=== PATIENT | male | born 1945 | race Hispanic/Latino ===

== ENCOUNTER 2019-10-04 06:09 | Day surgery (SDC) | payer MEDICARE ==
[2019-10-04] VITALS (7 sets, daily range): BP systolic 87–109; BP diastolic 40–60; PULSE 75–95; RESP 16–20; TEMP 97.4–97.7
[~2019-10-04] VITALS: Ht 185.4 cm; Wt 97.5 kg
[~2019-10-04 06:09] MED LIST: SODIUM CHLORIDE 0.9% 1000ML 1,000 ML IV ONE
[2019-10-04] MEDS ORDERED: PROPOFOL 10 MG/ML 20ML VIAL IV ONE (08:39)
[2019-10-04] MEDS ORDERED: LIDOCAINE HCL 2% 20ML ONE (08:40)
== END 2019-10-04 09:55 | disposition home or self-care (01) ==
LOC: DAH 06:09
PROVIDERS: ATTEND Internal Medicine Gastroenterology
DX: Z12.11 Encounter for screening for malignant neoplasm of colon (principal); K63.5 Polyp of colon; K57.30 Diverticulosis of large intestine without perforation or abscess without bleeding; J44.9 Chronic obstructive pulmonary disease, unspecified; I10 Essential (primary) hypertension; E78.2 Mixed hyperlipidemia; F41.9 Anxiety disorder, unspecified; F32.9 Major depressive disorder, single episode, unspecified; M19.90 Unspecified osteoarthritis, unspecified site; Z79.899 Other long term (current) drug therapy; Z11.59 Encounter for screening for other viral diseases
CPT/HCPCS: 36415; 45385; 88305; A4215; A4221; A4222; A4223; A4606; A4620; A4657; A4663; J2704; J3490; J7030 ×2; U0003

== ENCOUNTER → 2021-03-23 | Outpatient (CLI) | payer OTHER ==
[~2021-03-23] MED LIST changes: +ATOR10TA69 PO; +ESCI-8 PO; +LIDOCAINE HCL 4% LTA SOL 4 ML VIAL TP ONE; -SODIUM CHLORIDE 0.9% 1000ML 1,000 ML IV ONE; +TELM1TAB32 PO
== END | disposition home or self-care (01) ==
LOC: WHH 10:03
PROVIDERS: ATTEND Family Medicine
DX: L97.512 Non-pressure chronic ulcer of other part of right foot with fat layer exposed (principal); S90.821A Blister (nonthermal), right foot, initial encounter; S90.424A Blister (nonthermal), right lesser toe(s), initial encounter; S50.312A Abrasion of left elbow, initial encounter; R60.0 Localized edema; I89.0 Lymphedema, not elsewhere classified; I10 Essential (primary) hypertension; E78.5 Hyperlipidemia, unspecified; M19.90 Unspecified osteoarthritis, unspecified site; J44.9 Chronic obstructive pulmonary disease, unspecified; F41.9 Anxiety disorder, unspecified; F32.9 Major depressive disorder, single episode, unspecified; E66.9 Obesity, unspecified; Z68.1 Body mass index [BMI] 19.9 or less, adult; Z79.899 Other long term (current) drug therapy; X58.XXXA Exposure to other specified factors, initial encounter; Y93.89 Activity, other specified; Y92.89 Other specified places as the place of occurrence of the external cause; Y99.8 Other external cause status
CPT/HCPCS: 11042; 11045; 29580; A6021; A6197; A6456

== ENCOUNTER → 2021-07-20 | Outpatient (CLI) | payer OTHER | END | disposition home or self-care (01) | LOC: WHH 08:30 | PROVIDERS: ATTEND Family Medicine | DX: L97.512 Non-pressure chronic ulcer of other part of right foot with fat layer exposed (principal); S90.424D Blister (nonthermal), right lesser toe(s), subsequent encounter; S50.312D Abrasion of left elbow, subsequent encounter; I89.0 Lymphedema, not elsewhere classified; R60.0 Localized edema; I10 Essential (primary) hypertension; E78.5 Hyperlipidemia, unspecified; M19.90 Unspecified osteoarthritis, unspecified site; J44.9 Chronic obstructive pulmonary disease, unspecified; F41.9 Anxiety disorder, unspecified; F32.9 Major depressive disorder, single episode, unspecified; E66.9 Obesity, unspecified; Z68.1 Body mass index [BMI] 19.9 or less, adult; Z79.899 Other long term (current) drug therapy; X58.XXXD Exposure to other specified factors, subsequent encounter | CPT/HCPCS: 29580; 87070 ×2; 87077 ×2; 87186 ×2; A6021; A6197; A6456; G0463 ==

== ENCOUNTER → 2022-03-29 | Outpatient (CLI) | payer OTHER ==
[~2022-03-29] MED LIST changes: -LIDOCAINE HCL 4% LTA SOL 4 ML VIAL TP ONE
[2022-03-29 12:44] LABS: BASOPHILS % (AUTO) 0.9 % (0.0-5.0); EOSINOPHILS % (AUTO) 2.2 % (0.0-8.0); HEMATOCRIT 48.4 % (42-54); LYMPHOCYTES % (AUTO) 26.8 % (21.0-51.0); MEAN CORPUSCULAR HEMOGLOBIN 30.7 pg (27.0-33.0); MONOCYTES % (AUTO) 9.4 % (3.0-13.0); NEUTROPHILS % (AUTO) 60.2 % (40.0-77.0); PLATELET COUNT (AUTO) 125 K/uL (130-400); RED BLOOD CELL COUNT(AUTO) 4.89 MIL/uL (4.50-6.20); RED CELL DISTRIBUTION WIDTH 15.4 % (11.0-15.5); WHITE BLOOD COUNT (AUTO) 8.1 K/uL (4.8-10.8)
[2022-03-29 12:50] LABS: CREATININE 0.6 mg/dL (0.5-1.5)
[2022-03-29 12:53] LABS: INR 1.67 (0.85-1.15); PROTHROMBIN TIME 17.7 SEC (9.6-11.6)
[2022-03-29 12:55] LABS: PARTIAL THROMBOPLASTIN TIME 43.7 SEC (26.3-35.5)
== END | disposition home or self-care (01) ==
LOC: LAB 11:50
PROVIDERS: ATTEND Internal Medicine Cardiovascular Disease
DX: I87.1 Compression of vein (principal); I87.8 Other specified disorders of veins
CPT/HCPCS: 36415; 80048; 85025; 85610; 85730

== ENCOUNTER → 2022-05-30 | Outpatient (CLI) | payer OTHER | END | disposition home or self-care (01) | LOC: SHCH 14:59 | PROVIDERS: ATTEND Internal Medicine Cardiovascular Disease | DX: I87.2 Venous insufficiency (chronic) (peripheral) (principal); Z98.890 Other specified postprocedural states | CPT/HCPCS: 93971 ==

== ENCOUNTER → 2022-06-06 | Outpatient (CLI) | payer OTHER | END | disposition home or self-care (01) | LOC: SHCH 11:09 | PROVIDERS: ATTEND Internal Medicine Cardiovascular Disease | DX: I87.2 Venous insufficiency (chronic) (peripheral) (principal); Z98.890 Other specified postprocedural states | CPT/HCPCS: 93971 ==

== ENCOUNTER 2024-06-05 19:19 | Inpatient (IN) | payer OTHER ==
[~2024-06-05] VITALS: Ht 185.4 cm; Wt 87.2 kg
[2024-06-05] MEDS ORDERED: LACTULOSE 20 GM/30 ML UDCUP PO PRN (21:00)
[2024-06-05] MEDS ORDERED: DiphenhydrAMINE HCL 25 MG CAPSULE PO PRN (21:00)
[2024-06-05] MEDS ORDERED: ZOLPidem TARTrate 5 MG TAB PO PRN (21:00)
[2024-06-05] MEDS ORDERED: ALBUTEROL 0.083% 2.5 MG/3 ML INH IH PRN (21:00)
[2024-06-05] MEDS ORDERED: cloNIDine HCL 0.1 MG TABLET PO PRN (21:00)
[2024-06-05] MEDS ORDERED: VANCOMYCIN PROTOCOL PER PHARMACY IV SCH (21:30)
[2024-06-06] VITALS (15 sets, daily range): BP systolic 131–157; BP diastolic 66–99; PULSE 49–82; RESP 17–20; TEMP 97.6–98.6; O2SAT 96–99
[2024-06-06] MEDS: IpraTROPium/alBUTERol SULFATE 3 ML SOLUTION IH SCH
[2024-06-06] MEDS: VANCOMYCIN KIT 1 GM/250 ML IV.KIT IV SCH (00:33)
[2024-06-06] MEDS: FAMOTIDINE 20MG TAB PO SCH (00:33)
--- NOTE | 2024-06-06 00:34 | NUR ---
ASSUMED CARE AT THIS TIME.
[2024-06-06 00:53] LABS: BASOPHILS # (AUTO) 0.04 K/uL (0.00-0.20); BASOPHILS % (AUTO) 0.8 % (0.0-5.0); HEMATOCRIT 44.4 % (42-54); IMMATURE GRANULOCYTE ABSOLUTE 0.02 K/uL (0-1); LYMPHOCYTES # (AUTO) 0.6 K/uL (1.0-4.8); LYMPHOCYTES % (AUTO) 11.8 % (21.0-51.0); MEAN CORPUSCULAR HEMOGLOBIN 28.5 pg (27.0-33.0); MEAN CORPUSCULAR HGB CONC 31.3 g/dL (32.0-36.0); MONOCYTES # (AUTO) 0.3 K/uL (0.1-1.0); MONOCYTES % (AUTO) 6.3 % (3.0-13.0); NEUTROPHILS # (AUTO) 3.9 K/uL (1.8-7.7); NEUTROPHILS % (AUTO) 78.7 % (40.0-77.0); PLATELET COUNT (AUTO) 79 K/uL (130-400); RED BLOOD CELL COUNT(AUTO) 4.88 MIL/uL (4.50-6.20); RED CELL DISTRIBUTION WIDTH 15.6 % (11.0-15.5); WHITE BLOOD COUNT (AUTO) 4.9 K/uL (4.8-10.8)
[2024-06-06 01:00] LABS: CREATININE 0.5 mg/dL (0.5-1.3); POTASSIUM 4.6 mmol/L (3.5-5.1)
[2024-06-06 01:04] LABS: ALBUMIN 2.9 g/dL (3.5-5.0); BILIRUBIN,DIRECT 0.1 mg/dL (0.0-0.3)
--- NOTE | 2024-06-06 02:03 | NUR ---
REPORT GIVEN TO NURSE OZ Yin
[2024-06-06] MEDS: MEROPENEM 1GM 1 GM VIAL IV SCH (03:59)
[2024-06-06 05:34] LABS: BASOPHILS # (AUTO) 0.03 K/uL (0.00-0.20); BASOPHILS % (AUTO) 0.9 % (0.0-5.0); EOSINOPHILS % (AUTO) 2.8 % (0.0-8.0); HEMATOCRIT 32.3 % (42-54); IMMATURE GRANULOCYTE ABSOLUTE 0.02 K/uL (0-1); LYMPHOCYTES # (AUTO) 0.4 K/uL (1.0-4.8); LYMPHOCYTES % (AUTO) 10.5 % (21.0-51.0); MEAN CORPUSCULAR HEMOGLOBIN 28.3 pg (27.0-33.0); MEAN CORPUSCULAR VOLUME 91.5 fL (79-99); MONOCYTES # (AUTO) 0.2 K/uL (0.1-1.0); MONOCYTES % (AUTO) 6.3 % (3.0-13.0); NEUTROPHILS # (AUTO) 2.8 K/uL (1.8-7.7); NEUTROPHILS % (AUTO) 78.9 % (40.0-77.0); PLATELET COUNT (AUTO) 51 K/uL (130-400); RED BLOOD CELL COUNT(AUTO) 3.53 MIL/uL (4.50-6.20); RED CELL DISTRIBUTION WIDTH 15.5 % (11.0-15.5); WHITE BLOOD COUNT (AUTO) 3.5 K/uL (4.8-10.8)
[2024-06-06 05:46] LABS: ALBUMIN 2.2 g/dL (3.5-5.0); BILIRUBIN,DIRECT 0.2 mg/dL (0.0-0.3); BILIRUBIN,TOTAL 0.6 mg/dL (0.2-1.0); CREATININE 0.3 mg/dL (0.5-1.3); TOTAL PROTEIN, SERUM 5.7 g/dL (6.0-8.3)
[2024-06-06 05:50] LABS: POTASSIUM 2.7 mmol/L (3.5-5.1)
[2024-06-06] MEDS ORDERED: PoTASSium chloRIDE 20MEQ/100ML 100 ML IV PRN (07:30)
[2024-06-06] MEDS: VANCOMYCIN 1.25 GM/250 ML BAG 250 ML IV SCH (08:52)
[2024-06-06] MEDS: PoTASSium chl 10% ELIXIR 20MEQ 20 MEQ/15 ML UDCUP PO PRN (12:13)
[2024-06-06 14:27] LABS: INR 1.39 (0.85-1.15); PROTHROMBIN TIME 15.1 SEC (9.6-11.6)
[2024-06-06 14:29] LABS: PARTIAL THROMBOPLASTIN TIME 41.4 SEC (26.3-35.5)
[2024-06-06] MEDS ORDERED: LINE600T14 PO (14:38)
[2024-06-06] MEDS ORDERED: amox-clav (14:41)
[2024-06-06] MEDS: ceFEPime HCL 1 GM VIAL IVPB SCH (14:51)
--- NOTE | 2024-06-06 15:04 | NUR ---
[facility] Consult: Patient assessed by wound healing team. See wound assessment. Assessment and recommendations provided to primary nurse. Education provided. Wound care done. Addendum: 06/07/24 at 0956 by JAME BOATENG RN RN/ Amended: Links added.
--- NOTE | 2024-06-06 15:49 | HMCIMG ---
CHEST 1VW HISTORY: PICC line placement COMPARISON: None FINDINGS: A frontal projection of the chest was obtained. There are bilateral pulmonary infiltrates suggestive of pulmonary vascular congestion with possible superimposed pneumonitis. The heart is borderline enlarged. PICC line is seen entering from the right with distal tip in plane of the superior vena cava. Aortic calcifications are seen. IMPRESSION: 1. Bilateral pulmonary infiltrates are seen suggestive of pulmonary vascular congestion with possible superimposed pneumonitis.
--- NOTE | 2024-06-06 17:46 | NUR ---
DCP Pt in bed, awake, Leticia Duarte [phone] at bedside. Verbalized pt is hard of hearing. Pt has an electric wheelchair and [facility] for wound care. Mrs. Duarte anticipates discharge plan is for long-term facility, release of information is signed and in the chart. Addendum: 06/06/24 at 1751 by MARSHALL LAURENT RN CM Amended: Links added.
--- NOTE | 2024-06-06 18:04 | PN ---
SUBJECTIVE: The patient was examined at bedside, dictation for a visit of 06/06. The patient denies any fever, chills, seizures, loss of consciousness. No chest pain, palpitation. No cough, wheeze or rhonchi. Continue with wound care for lower extremities. He was started also on meropenem and vancomycin yesterday. PHYSICAL EXAMINATION: GENERAL: Currently, he is awake, alert, oriented in person, time and place. VITAL SIGNS: Blood pressure 155/99, pulse 68, respiratory rate 17. HEENT: Normocephalic, atraumatic. LUNGS: Clear to auscultation. HEART: S1, S2 are distant. ABDOMEN: Soft, nontender. EXTREMITIES: Covered with surgical gauzes. There is an erythroderma and warmness from the upper third of leg down to fifth. LABORATORY DATA: WBC count 3.5, hemoglobin 10, platelets 51,000. Sodium 145, potassium 2.7, BUN 13, creatinine 0.3, albumin 2.2. ASSESSMENT AND PLAN: Bilateral lower extremity cellulitis with associated non-pressure ulcers. Positive cultures for Acinetobacter SP, pseudomonal aeruginosa, E. coli, morganella. The patient will continue with current antibiotics. He will have PICC line in place, have consultation with ID to continue antibiotics. We will plan to discharge to either a SNF or to outpatient infusion unit. Continue treatment of other comorbidities, hypertension, muscular dystrophy, dyslipidemia. Follow up in a.m. with results. Plan to discharge when arrangements are completed. DOS: 06/06/2024 TID: [id number] RECEIPT: [id number] [facility]
--- NOTE | 2024-06-06 18:33 | NUR ---
PICC LINE PLACED WAITING FOR DR. BEULAH COBIAN TO USE
[2024-06-06] MEDS: SODIUM HYPOCHLORITE 0.25% [HALF STRENGTH] 473 ML TOPICAL SOLN TP SCH (20:27)
[2024-06-06] MEDS: acetaMINOPHEN 325 MG TAB PO PRN (21:32)
[2024-06-07] VITALS (11 sets, daily range): BP systolic 138–157; BP diastolic 66–87; PULSE 64–98; RESP 17–22; TEMP 97.8–98.9; O2SAT 91–100
--- NOTE | 2024-06-07 04:51 | CONS ---
INFECTIOUS DISEASE CONSULTATION NOTE DATE OF SERVICE: 06/06/2024 REQUESTING PHYSICIAN: Stefano Arora MD REASON FOR CONSULTATION: Bilateral leg ulceration antibiotic management. HISTORY OF PRESENT ILLNESS: An 78-year-old male with history of hypertension, depression, dyslipidemia, and chronic lymphedema who was admitted with increasing ulcer and redness of both legs. The patient found with extensive infection, was subsequently admitted. The patient . The patient was in my clinic few weeks ago, was offered IV antibiotics. The patient and the refused. No fever or chills. No nausea or vomiting. No diarrhea. The patient is wheelchair bound. PAST MEDICAL HISTORY: * Hypertension. * Depression. * Dyslipidemia. * Lymphedema. * Muscular dystrophy. * Wheelchair-bound status. PAST SURGICAL HISTORY: * Bilateral pneumonectomy. * Multiple lower extremity wound debridement. ALLERGIES: No known drug allergy. CURRENT MEDICATIONS: Include: * Vancomycin. * Meropenem. * Lactulose. * Pepcid. * Tylenol. * . * Lovenox. SOCIAL HISTORY: The patient lives with his . No alcohol or drug use. FAMILY HISTORY: Noncontributory. REVIEW OF SYSTEMS: Greater than 10 systems were reviewed, negatives as documented above. PHYSICAL EXAMINATION: GENERAL: Elderly male, awake. VITAL SIGNS: Temperature today 98.1, pulse 60, respirations 20, blood pressure 155/99. EYES: No icterus. Pupils equal and reactive. HENT: No oral thrush seen. Moist oral mucosa. NECK: Supple, no JVD or thyromegaly. LUNGS: Good air entry. No rales, no rhonchi. CARDIOVASCULAR: S1, S2 regular. No murmur heard. ABDOMEN: Full, soft. Bowel sound is present. CENTRAL NERVOUS SYSTEM: The patient is awake, alert, bedbound. Paraplegia in lower extremities. SKIN: No rashes, no itchiness. LYMPHATIC: There is bilateral inguinal lymphadenopathy. BACK: No deformity, no pressure ulcer. EXTREMITIES: Extensive ulcer, lymphedema involving both the legs. There is extensive fungal infection of both feet. LABORATORY DATA: Sodium 142, potassium 3.7, BUN 13, creatinine 0.3. WBC 3.5, hemoglobin 10.0, platelets 51,000. ASSESSMENT: An 78-year-old male admitted with: * Bilateral leg ulcers, complained of bilateral lower extremity cellulitis. * Bilateral leg ulcer. * Chronic lymphedema. * Onychomycosis * Thrombocytopenia. * Leukopenia. * . PLAN: * Continue vancomycin. * Start the patient on meropenem. * Start the patient on fluconazole. * Start the patient on cefepime. * Continue pain management. * Continue DVT prophylaxis. * Monitor electrolytes. * Continue lactulose. Thank you for allowing me to participate in the care of this patient. TID: [id number] RECEIPT: [id number]
[2024-06-07 08:18] LABS: ALBUMIN 2.5 g/dL (3.5-5.0); BILIRUBIN,TOTAL 0.9 mg/dL (0.2-1.0); CREATININE 0.4 mg/dL (0.5-1.3); POTASSIUM 4.2 mmol/L (3.5-5.1)
--- NOTE | 2024-06-07 08:22 | NUR ---
MEDICATIONS HAVE NOT BEEN RECONSILED YET DUE TO PATIENT BEING A POOR HISTORIAN. FAMILY MEMBERS ENCOURAGED TO BRING HOME MEDICATIONS.
--- NOTE | 2024-06-07 08:36 | NUR ---
CALLED PHARMACY TO NOTIFY THEM I DO HAVE HAVE A WORKING WOW AND ARE NOT ABLE TO SCAN PATIENT MEDICATIONS. SPOKE WITH ABHINAV. SHE STATED SHE WILL PRINT PAPER E-MAR. NOTIFY MR. LUCAS, CLINICAL DAY HABILITATION SPECIALIST FOR 3RD FLOOR.
[2024-06-07] MEDS: fluCONazole 100 MG TAB PO SCH (09:06)
[2024-06-07] MEDS ORDERED: METO-408 PO (11:10)
[2024-06-07] MEDS ORDERED: RIVA20TA PO (11:10)
--- NOTE | 2024-06-07 19:00 | NUR ---
PERFORMED WOUND CARE TO LOWER EXTREMITIES DIRECTED BY PHYSICIAN. PATIENT TOLERATED WOUND CARE WELL. NO COMPLAINTS OF PAIN.
--- NOTE | 2024-06-07 21:49 | PN ---
INFECTIOUS DISEASE FOLLOWUP NOTE DATE OF SERVICE: 06/07/2024 SUBJECTIVE: The patient is seen and examined at bedside today. The patient has no fever, no chills. No vomiting. No abdominal pain. Tolerating antibiotic. No slurred speech or limb weakness. No depression or suicidal ideation. No bleeding tendency. PHYSICAL EXAMINATION: VITAL SIGNS: Temperature today 98.4. EYES: No icterus. Pupils equal and reactive. HENT: No oral thrush seen. Moist oral mucosa. NECK: Supple. No JVD or thyromegaly. LUNGS: Good air entry. No rales. No rhonchi. CARDIOVASCULAR: S1, S2, regular. No murmur heard. ABDOMEN: Full, soft, nontender. Bowel sounds are present. CENTRAL NERVOUS SYSTEM: Awake, alert, oriented x 3. No focal deficit. Bedbound debility. SKIN: No rashes, no itchiness. LYMPHATIC: There is bilateral inguinal lymphadenopathy. BACK: No deformity, no pressure ulcer. EXTREMITIES: Extensive ulcer and lymphedema of both lower legs. ASSESSMENT: * An 78-year-old male with multiple problems and leg ulcer. * Chronic lymphedema. * Onychomycosis. * Obesity. * Leg ulcers. * Debility. PLAN: * Continue vancomycin. * Continue cefepime. * Continue fluconazole. * Continue pain management. * Continue DVT prophylaxis. * Monitor electrolytes. * Continue antiemetic. TID: [id number] RECEIPT: [id number]
[2024-06-08] VITALS (10 sets, daily range): BP systolic 142–157; BP diastolic 72–98; PULSE 68–93; RESP 16–20; TEMP 97.5–99; O2SAT 97–98
--- NOTE | 2024-06-08 04:24 | PN ---
SUBJECTIVE: The patient continued with IV antibiotics. Pending placement at the SNF, to continue with IV antibiotics for the next month as per ID recommendations. Again, no fever, chills. No seizures. No chest pain, palpitations. No nausea or vomiting. Currently, he was examined at bedside. OBJECTIVE: GENERAL: Awake, alert, oriented in person, time and place, not in distress. VITAL SIGNS: In the chart. HEENT: Normocephalic, atraumatic. LUNGS: Clear to auscultation. HEART: S1, S2 are distant. ABDOMEN: Soft and nontender. EXTREMITIES: Peripheral edema of lower extremities from the proximal third to both legs, down to feet. LABORATORY DATA: WBC count 3.5, hemoglobin 10, platelets 51,000. Sodium 138, potassium 4.2, BUN 10, creatinine 0.4. ASSESSMENT AND PLAN: * Bilateral lower extremity cellulitis with associated bilateral non-pressure ulcer. Positive culture for Acinetobacter SP, pseudomonas aeruginosa, E. coli, morganella. Continue with meropenem and vancomycin as per ID. Plan to discharge to SNF as soon as arrangements are completed. * Hypertension. Continue current medications. * Dyslipidemia. Continue current _trt.____. * Muscular dystrophy. Continue current supportive care. Plan to discharge when arrangements are completed. DOS: 06/07/2024 TID: [id number] RECEIPT: [id number] [facility]
[2024-06-08] MEDS: atorVAStatin 10 MG TABLET PO SCH (08:39)
[2024-06-08] MEDS: RIVAROXABAN 20 MG TABLET PO SCH (08:41)
[2024-06-08] MEDS: metOPROLol sucCINATE 25 MG TAB.SR.24H PO SCH (08:42)
[2024-06-08] MEDS: citaLOPram 20 MG TABLET PO SCH (08:42)
--- NOTE | 2024-06-08 09:30 | NUR ---
[facility] Per Roberta Wyatt, ins auth remains pending at this time.
--- NOTE | 2024-06-08 16:56 | PN ---
INFECTIOUS DISEASE PROGRESS NOTE Date of Service: Jun 08, 2024 SUBJECTIVE: This is an 78-year-old male patient with past medical history of bilateral lower extremities chronic lymphedema with ulcers and cellulitis who was sent over as direct admission from his PCP for evaluation of bilateral lower extremity cellulitis. Preliminary wound cultures growing Gram-negative rods. Patient is afebrile, temperature is 97.9. Patient has been started on cefepime, fluconazole p.o. and vancomycin IV per pharmacy protocol. No reports of nausea or vomiting. We will continue to follow patient's care. PHYSICAL EXAM EYES: Anicteric. Pupils equal and reactive. HENT: No oral thrush seen, moist Oral mucosa NECK: Supple, no JVD or thyromegaly. LUNGS: Good air entry. No rales, no rhonchi. CARDIOVASCULAR: S1, S2 regular. No murmur heard. ABDOMEN: Soft, non tender, bowel sounds present, no organomegaly CENTRAL NERVOUS SYSTEM: Awake, alert, oriented x 3. No focal deficits. SKIN: No rashes, no swelling. LYMPHATICS: No peripheral lymphadenopathy MUSCULOSKELETAL: No joint swelling, erythema or tenderness. EXTREMITIES: No cyanosis or clubbing. Bilateral lower extremity lymphedema with ulcers. Fungal infection to both feet. BACK: No deformity, no pressure ulcer. GENITOURINARY: No dysuria or hematuria Vital Sign (Last 12 Hours) 06/08/24 06/08/24 06/08/24 06/08/24 07:24 07:25 08:00 08:00 Temp 97.5 Pulse 77 77 78 Resp 18 18 16 B/P (MAP) 148/93 Pulse Ox 98 98 O2 Delivery N/A Room Air Room Air Room Air* O2 Flow Rate 0 FiO2 21 21 21 06/08/24 06/08/24 06/08/24 12:00 14:24 16:00 Temp 97.9 99.0 Pulse 93 68 85 Resp 17 18 16 B/P (MAP) 152/84 152/98 Pulse Ox 97 96 O2 Delivery Room Air Room Air FiO2 21 21 LABS: Laboratory: Test 06/07/24 07:38 Range/Units Sodium Level 138 136-145 mmol/L Potassium Level 4.2 3.5-5.1 mmol/L Chloride Level 103 101-111 mmol/L Carbon Dioxide Level 31 21-32 mmol/L Blood Urea Nitrogen 10 7-18 mg/dL Creatinine 0.4 L 0.5-1.3 mg/dL Glomerular Filtration Rate Calc 110 >90 mL/min Random Glucose 91 70-105 mg/dL Total Calcium 8.4 L 8.5-10.1 mg/dL Total Bilirubin 0.9 0.2-1.0 mg/dL Aspartate Amino Transf (AST/SGOT) 26 10-37 U/L Alanine Aminotransferase (ALT/SGPT) 12 12-78 U/L Alkaline Phosphatase 178 H 50-136 U/L Total Protein 6.0 6.0-8.3 g/dL Albumin 2.5 L 3.5-5.0 g/dL Vancomycin Level Trough 13.0 10.0-20.0 UG/ML ASSESSMENT: Bilateral lower extremities chronic ulcers. Bilateral lower extremities cellulitis. Chronic lymphedema. Onychomycosis. Thrombocytopenia. PLAN: Continue vancomycin. Continue Meropenem. We will follow up on the wound cultures. Continue pain management. Continue GI prophylaxis. Continue wound care. Continue applying nystatin powder interdigitally. Patient has been referred to [facility] and pending insurance authorization. We will monitor electrolytes. This case was reviewed and discussed with my supervising physician and the above assessment and plan was formulated and agreed upon. ATTESTATION BY PHYSICIAN I have seen and examined the patient. I reviewed the documentation, medical decision making, and treatment plan as noted by the mid-level provider above. I agree with the findings and plan of care. CLEMENTINE STILES MD, MIRTA L FNP Jun 08, 2024 16:56
--- NOTE | 2024-06-08 22:35 | PN ---
PROGRESS NOTE PROGRESS NOTE DATE OF PROGRESS NOTE: 06/08/24 SUBJECTIVE: no fever, chills. No seizures. No chest pain, palpitations. No nausea or vomiting. Currently, he was examined at bedside. VITAL SIGNS Vital Signs Date Time Temp Pulse Resp B/P (MAP) Pulse Ox O2 Delivery O2 Flow Rate FiO2 06/08/24 20:13 97 Room Air* 0 21 06/08/24 20:00 98.4 73 20 142/89 PHYSICAL EXAM: OBJECTIVE: GENERAL: Awake, alert, oriented in person, time and place, not in distress. VITAL SIGNS: In the chart. HEENT: Normocephalic, atraumatic. LUNGS: Clear to auscultation. HEART: S1, S2 are distant. ABDOMEN: Soft and nontender. EXTREMITIES: Peripheral edema of lower extremities from the proximal third to both legs, down to feet. LABORATORY: Laboratory Result(s) Test 06/08/24 20:12 Vancomycin Level Trough 18.5 UG/ML (10.0-20.0) INPATIENT MEDS: Current Medications Medications Dose Ordered Sig/Neftaly Start Time Stop Time Status Last Admin Famotidine 20 mg BID 06/05/24 21:00 07/05/24 20:59 06/08/24 20:12 Diphenhydramine HCl 25 mg Q4HPRN PRN 06/05/24 21:00 07/05/24 20:59 Acetaminophen 650 mg Q6H PRN 06/05/24 21:00 07/05/24 20:59 06/07/24 21:41 Zolpidem Tartrate 5 mg HS PRN 06/05/24 21:00 07/05/24 20:59 Lactulose 20 gm BID PRN 06/05/24 21:00 07/05/24 20:59 Albuterol 1 UDVIAL Q8H 06/05/24 21:00 07/05/24 20:59 06/08/24 14:24 Albuterol Sulfate 2.5MG Q2H PRN 06/05/24 21:00 07/05/24 20:59 Vancomycin HCl 1 each AD 06/05/24 21:30 06/19/24 21:29 Vancomycin HCl 250 ml @ 125 mls/hr Q12H 06/06/24 09:00 06/16/24 08:59 06/08/24 21:02 Potassium Chloride 100 ml @ 100 mls/hr AD PRN 06/06/24 07:30 07/06/24 07:29 Potassium Chloride 20 meq AD PRN 06/06/24 07:30 07/06/24 07:29 06/06/24 20:30 Potassium Chloride 20 meq AD PRN 06/06/24 07:30 07/06/24 07:29 Cefepime HCl 1 gm Q8H 06/06/24 14:30 06/16/24 14:29 06/08/24 21:55 Sodium Hypochlorite 1 APPL TP BID BID 06/06/24 21:00 07/06/24 20:59 06/08/24 21:34 Fluconazole 200 mg DAILY 06/07/24 09:00 07/07/24 08:59 06/08/24 08:42 Atorvastatin Calcium 10 mg DAILY 06/08/24 09:00 07/08/24 08:59 06/08/24 08:39 Metoprolol Succinate 25 mg DAILY 06/08/24 09:00 07/08/24 08:59 06/08/24 08:42 Rivaroxaban 20 mg DAILY 06/08/24 09:00 07/08/24 08:59 06/08/24 08:41 Citalopram Hydrobromide 20 mg DAILY 06/08/24 09:00 07/08/24 08:59 06/08/24 08:42 PLAN: . ASSESSMENT AND PLAN: * Bilateral lower extremity cellulitis with associated bilateral non-pressure ulcer. Positive culture for Acinetobacter SP, pseudomonas aeruginosa, E. coli, morganella. Continue with meropenem and vancomycin as per ID. Plan to discharge to SNF as soon as arrangements are completed. * Hypertension. Continue current medications. * Dyslipidemia. Continue current med * Muscular dystrophy. Continue current supportive care. Plan to discharge when arrangements are completed. JOBY BELL MD Jun 08, 2024 22:35
[2024-06-09] VITALS (11 sets, daily range): BP systolic 142–167; BP diastolic 95–102; PULSE 60–95; RESP 18–28; TEMP 97.8–99; O2SAT 94–97
[2024-06-09 05:10] LABS: BASOPHILS # (AUTO) 0.01 K/uL (0.00-0.20); BASOPHILS % (AUTO) 0.2 % (0.0-5.0); EOSINOPHILS # (AUTO) 0.07 K/uL (0.00-0.70); EOSINOPHILS % (AUTO) 1.5 % (0.0-8.0); HEMATOCRIT 37.5 % (42-54); IMMATURE GRANULOCYTE ABSOLUTE 0.02 K/uL (0-1); LYMPHOCYTES # (AUTO) 0.7 K/uL (1.0-4.8); LYMPHOCYTES % (AUTO) 14.3 % (21.0-51.0); MEAN CORPUSCULAR HEMOGLOBIN 28.3 pg (27.0-33.0); MEAN CORPUSCULAR HGB CONC 31.7 g/dL (32.0-36.0); MEAN CORPUSCULAR VOLUME 89.3 fL (79-99); MONOCYTES # (AUTO) 0.6 K/uL (0.1-1.0); MONOCYTES % (AUTO) 12.7 % (3.0-13.0); NEUTROPHILS # (AUTO) 3.4 K/uL (1.8-7.7); NEUTROPHILS % (AUTO) 70.9 % (40.0-77.0); PLATELET COUNT (AUTO) 61 K/uL (130-400); RED CELL DISTRIBUTION WIDTH 15.5 % (11.0-15.5); WHITE BLOOD COUNT (AUTO) 4.7 K/uL (4.8-10.8)
[2024-06-09 05:31] LABS: ALBUMIN 2.5 g/dL (3.5-5.0); BILIRUBIN,TOTAL 0.8 mg/dL (0.2-1.0); CREATININE 0.4 mg/dL (0.5-1.3); MAGNESIUM 1.8 mg/dL (1.80-2.40); POTASSIUM 3.6 mmol/L (3.5-5.1); TOTAL PROTEIN, SERUM 6.7 g/dL (6.0-8.3)
[2024-06-09] MEDS: PoTASSium chloRIDE 20MEQ ER 20 MEQ ERTAB PO PRN (05:34)
--- NOTE | 2024-06-09 19:04 | NUR ---
PERFORMED WOUND CARE TO LOWER EXTREMITIES DIRECTED BY PHYSICIAN. PATIENT TOLERATED WOUND CARE WELL. NO COMPLAINTS OF PAIN.
--- NOTE | 2024-06-09 20:22 | PN ---
INFECTIOUS DISEASE PROGRESS NOTE Date of Service: Jun 09, 2024 SUBJECTIVE: This is an 78-year-old male patient with past medical history of bilateral lower extremities chronic lymphedema with ulcers and cellulitis who was sent over as direct admission from his PCP for evaluation of bilateral lower extremity cellulitis. Patient was seen and examined at bedside in room 323. Patient is awake, alert and able to answer questions appropriately. The toes of the right foot with some discoloration. The wound cultures on the right foot growing Morganella morganii and Pseudomonas aeruginosa and the cultures of the left foot growing Acinetobacter baumannii and Pseudomonas aeruginosa. Patient is on cefepime, fluconazole p.o. and vancomycin IV per pharmacy protocol. No reports of nausea or vomiting. We will continue to follow patient's care. PHYSICAL EXAM EYES: Anicteric. Pupils equal and reactive. HENT: No oral thrush seen, moist Oral mucosa NECK: Supple, no JVD or thyromegaly. LUNGS: Good air entry. No rales, no rhonchi. CARDIOVASCULAR: S1, S2 regular. No murmur heard. ABDOMEN: Soft, non tender, bowel sounds present, no organomegaly CENTRAL NERVOUS SYSTEM: Awake, alert, oriented x 3. No focal deficits. SKIN: No rashes, no swelling. LYMPHATICS: No peripheral lymphadenopathy MUSCULOSKELETAL: No joint swelling, erythema or tenderness. EXTREMITIES: No cyanosis or clubbing. Bilateral lower extremity lymphedema with ulcers. Fungal infection to both feet. BACK: No deformity, no pressure ulcer. GENITOURINARY: No dysuria or hematuria Vital Sign (Last 12 Hours) 06/09/24 06/09/24 06/09/24 06/09/24 08:23 12:27 16:00 18:57 Temp 98.1 99.0 97.9 Pulse 74 82 60 72 Resp 21 19 22 18 B/P (MAP) 163/102 165/98 142/95 Pulse Ox 94 99 96 06/09/24 18:57 Pulse 72 Resp 18 O2 Delivery N/A Room Air FiO2 21 Intake & Output (last 24hrs) 06/08/24 06/08/24 06/09/24 15:00 23:00 07:00 Intake Total 660 ml Balance 660 ml LABS: Laboratory: Test 06/09/24 05:05 06/08/24 20:12 Range/Units White Blood Count 4.7 L 4.8-10.8 K/uL Red Blood Count 4.20 L 4.50-6.20 MIL/uL Hemoglobin 11.9 L 14.0-18.0 g/dL Hematocrit 37.5 L 42-54 % Mean Corpuscular Volume 89.3 79-99 fL Mean Corpuscular Hemoglobin 28.3 27.0-33.0 pg Mean Corpuscular Hemoglobin Concent 31.7 L 32.0-36.0 g/dL Red Cell Distribution Width 15.5 11.0-15.5 % Platelet Count 61 L 130-400 K/uL Mean Platelet Volume 12.3 H 7.5-10.5 fL Immature Granulocyte % (Auto) 0.4 0-1 % Neutrophils (%) (Auto) 70.9 40.0-77.0 % Lymphocytes (%) (Auto) 14.3 L 21.0-51.0 % Monocytes (%) (Auto) 12.7 3.0-13.0 % Eosinophils (%) (Auto) 1.5 0.0-8.0 % Basophils (%) (Auto) 0.2 0.0-5.0 % Neutrophils # (Auto) 3.4 1.8-7.7 K/uL Lymphocytes # (Auto) 0.7 L 1.0-4.8 K/uL Monocytes # (Auto) 0.6 0.1-1.0 K/uL Eosinophils # (Auto) 0.07 0.00-0.70 K/uL Basophils # (Auto) 0.01 0.00-0.20 K/uL Absolute Immature Granulocyte (auto 0.02 0-1 K/uL Nucleated Red Blood Cells 0.0 0.0-0.19 % Sodium Level 136 136-145 mmol/L Potassium Level 3.6 3.5-5.1 mmol/L Chloride Level 101 101-111 mmol/L Carbon Dioxide Level 28 21-32 mmol/L Blood Urea Nitrogen 11 7-18 mg/dL Creatinine 0.4 L 0.5-1.3 mg/dL Glomerular Filtration Rate Calc 110 >90 mL/min Random Glucose 104 70-105 mg/dL Total Calcium 8.4 L 8.5-10.1 mg/dL Magnesium Level 1.80 1.80-2.40 mg/dL Total Bilirubin 0.8 0.2-1.0 mg/dL Aspartate Amino Transf (AST/SGOT) 25 10-37 U/L Alanine Aminotransferase (ALT/SGPT) 8 L 12-78 U/L Alkaline Phosphatase 204 H 50-136 U/L Total Protein 6.7 6.0-8.3 g/dL Albumin 2.5 L 3.5-5.0 g/dL Vancomycin Level Trough 18.5 # 10.0-20.0 UG/ML ASSESSMENT: Bilateral lower extremities chronic ulcers with polymicrobial infection. Bilateral lower extremities cellulitis. Chronic lymphedema. Onychomycosis. Thrombocytopenia. PLAN: Continue vancomycin. Continue Meropenem. Continue pain management. Continue GI prophylaxis. Continue wound care. Continue applying nystatin powder interdigitally. Patient has been referred to [facility] and pending insurance authorization. We will monitor electrolytes. This case was reviewed and discussed with my supervising physician and the above assessment and plan was formulated and agreed upon. ATTESTATION BY PHYSICIAN I have seen and examined the patient. I reviewed the documentation, medical decision making, and treatment plan as noted by the mid-level provider above. I agree with the findings and plan of care. CLEMENTINE STILES MD, MIRTA L [employer] Jun 09, 2024 20:22
--- NOTE | 2024-06-09 22:44 | PN ---
PROGRESS NOTE PROGRESS NOTE DATE OF PROGRESS NOTE: 06/09/24 SUBJECTIVE: no new complaints VITAL SIGNS Vital Signs Date Time Temp Pulse Resp B/P (MAP) Pulse Ox O2 Delivery O2 Flow Rate FiO2 06/09/24 20:00 97.9 95 24 152/97 96 Room Air 06/09/24 18:57 21 06/09/24 08:00 0 PHYSICAL EXAM: OBJECTIVE: GENERAL: Awake, alert, oriented in person, time and place, not in distress. VITAL SIGNS: In the chart. HEENT: Normocephalic, atraumatic. LUNGS: Clear to auscultation. HEART: S1, S2 are distant. ABDOMEN: Soft and nontender. EXTREMITIES: Peripheral edema of lower extremities from the proximal third to both legs, down to feet. LABORATORY: Laboratory Result(s) Test 06/09/24 05:05 White Blood Count 4.7 K/uL (4.8-10.8) Red Blood Count 4.20 MIL/uL (4.50-6.20) Hemoglobin 11.9 g/dL (14.0-18.0) Hematocrit 37.5 % (42-54) Mean Corpuscular Volume 89.3 fL (79-99) Mean Corpuscular Hemoglobin 28.3 pg (27.0-33.0) Mean Corpuscular Hemoglobin Concent 31.7 g/dL (32.0-36.0) Red Cell Distribution Width 15.5 % (11.0-15.5) Platelet Count 61 K/uL (130-400) Mean Platelet Volume 12.3 fL (7.5-10.5) Immature Granulocyte % (Auto) 0.4 % (0-1) Neutrophils (%) (Auto) 70.9 % (40.0-77.0) Lymphocytes (%) (Auto) 14.3 % (21.0-51.0) Monocytes (%) (Auto) 12.7 % (3.0-13.0) Eosinophils (%) (Auto) 1.5 % (0.0-8.0) Basophils (%) (Auto) 0.2 % (0.0-5.0) Neutrophils # (Auto) 3.4 K/uL (1.8-7.7) Lymphocytes # (Auto) 0.7 K/uL (1.0-4.8) Monocytes # (Auto) 0.6 K/uL (0.1-1.0) Eosinophils # (Auto) 0.07 K/uL (0.00-0.70) Basophils # (Auto) 0.01 K/uL (0.00-0.20) Absolute Immature Granulocyte (auto 0.02 K/uL (0-1) Nucleated Red Blood Cells 0.0 % (0.0-0.19) Sodium Level 136 mmol/L (136-145) Potassium Level 3.6 mmol/L (3.5-5.1) Chloride Level 101 mmol/L (101-111) Carbon Dioxide Level 28 mmol/L (21-32) Blood Urea Nitrogen 11 mg/dL (7-18) Creatinine 0.4 mg/dL (0.5-1.3) Glomerular Filtration Rate Calc 110 mL/min (>90) Random Glucose 104 mg/dL (70-105) Total Calcium 8.4 mg/dL (8.5-10.1) Magnesium Level 1.80 mg/dL (1.80-2.40) Total Bilirubin 0.8 mg/dL (0.2-1.0) Aspartate Amino Transf (AST/SGOT) 25 U/L (10-37) Alanine Aminotransferase (ALT/SGPT) 8 U/L (12-78) Alkaline Phosphatase 204 U/L (50-136) Total Protein 6.7 g/dL (6.0-8.3) Albumin 2.5 g/dL (3.5-5.0) INPATIENT MEDS: Current Medications Medications Dose Ordered Sig/Neftaly Start Time Stop Time Status Last Admin Famotidine 20 mg BID 06/05/24 21:00 07/05/24 20:59 06/09/24 20:16 Diphenhydramine HCl 25 mg Q4HPRN PRN 06/05/24 21:00 07/05/24 20:59 Acetaminophen 650 mg Q6H PRN 06/05/24 21:00 07/05/24 20:59 06/07/24 21:41 Zolpidem Tartrate 5 mg HS PRN 06/05/24 21:00 07/05/24 20:59 Lactulose 20 gm BID PRN 06/05/24 21:00 07/05/24 20:59 Albuterol 1 UDVIAL Q8H 06/05/24 21:00 07/05/24 20:59 06/09/24 18:57 Albuterol Sulfate 2.5MG Q2H PRN 06/05/24 21:00 07/05/24 20:59 Vancomycin HCl 1 each AD 06/05/24 21:30 06/19/24 21:29 Vancomycin HCl 250 ml @ 125 mls/hr Q12H 06/06/24 09:00 06/16/24 08:59 06/09/24 20:17 Potassium Chloride 100 ml @ 100 mls/hr AD PRN 06/06/24 07:30 07/06/24 07:29 Potassium Chloride 20 meq AD PRN 06/06/24 07:30 07/06/24 07:29 06/06/24 20:30 Potassium Chloride 20 meq AD PRN 06/06/24 07:30 07/06/24 07:29 06/09/24 05:34 Cefepime HCl 1 gm Q8H 06/06/24 14:30 06/16/24 14:29 06/09/24 21:50 Sodium Hypochlorite 1 APPL TP BID BID 06/06/24 21:00 07/06/24 20:59 06/09/24 20:17 Fluconazole 200 mg DAILY 06/07/24 09:00 07/07/24 08:59 06/09/24 08:50 Atorvastatin Calcium 10 mg DAILY 06/08/24 09:00 07/08/24 08:59 06/09/24 08:49 Metoprolol Succinate 25 mg DAILY 06/08/24 09:00 07/08/24 08:59 06/09/24 08:49 Rivaroxaban 20 mg DAILY 06/08/24 09:00 07/08/24 08:59 06/09/24 08:49 Citalopram Hydrobromide 20 mg DAILY 06/08/24 09:00 07/08/24 08:59 06/09/24 08:49 PLAN: . ASSESSMENT AND PLAN: * Bilateral lower extremity cellulitis with associated bilateral non-pressure ulcer. Positive culture for Acinetobacter SP, pseudomonas aeruginosa, E. coli, morganella. Continue with meropenem and vancomycin as per ID. Plan to discharge to SNF as soon as arrangements are completed. * Hypertension. Continue current medications. * Dyslipidemia. Continue current med * Muscular dystrophy. Continue current supportive care. Plan to discharge when arrangements are completed. JOBY BELL MD Jun 09, 2024 22:44
[2024-06-10] VITALS (11 sets, daily range): BP systolic 146–173; BP diastolic 90–98; PULSE 60–81; RESP 18–24; TEMP 97.4–98.4; O2SAT 96–98
[2024-06-10] MEDS ORDERED: cloNIDine HCL 0.1 MG TABLET PO PRN (13:30)
[2024-06-10] MEDS: amLODIPine 5 MG TAB PO SCH (15:37)
--- NOTE | 2024-06-10 17:57 | PN ---
INFECTIOUS DISEASE PROGRESS NOTE Date of Service: Jun 10, 2024 SUBJECTIVE: This is an 78-year-old male patient with past medical history of bilateral lower extremities chronic lymphedema with ulcers and cellulitis who was sent over as direct admission from his PCP for evaluation of bilateral lower extremity cellulitis. Patient was seen and examined at bedside in room 323. Patient has bilateral lower extremity ulcers with polymicrobial infection. Continues on cefepime, fluconazole p.o. and vancomycin IV per pharmacy protocol. No reports of nausea or vomiting. Per report patient was approved to [facility], patient however has been having high blood pressure readings today and was started on amlodipine besides the metoprolol. We will continue to follow patient's care. PHYSICAL EXAM EYES: Anicteric. Pupils equal and reactive. HENT: No oral thrush seen, moist Oral mucosa NECK: Supple, no JVD or thyromegaly. LUNGS: Good air entry. No rales, no rhonchi. CARDIOVASCULAR: S1, S2 regular. No murmur heard. ABDOMEN: Soft, non tender, bowel sounds present, no organomegaly CENTRAL NERVOUS SYSTEM: Awake, alert, oriented x 3. No focal deficits. SKIN: No rashes, no swelling. LYMPHATICS: No peripheral lymphadenopathy MUSCULOSKELETAL: No joint swelling, erythema or tenderness. EXTREMITIES: No cyanosis or clubbing. Bilateral lower extremity lymphedema with ulcers. Fungal infection to both feet. BACK: No deformity, no pressure ulcer. GENITOURINARY: No dysuria or hematuria Vital Sign (Last 12 Hours) 06/10/24 06/10/24 06/10/24 06/10/24 06:52 06:52 08:10 11:25 Temp 98.4 98.1 Pulse 81 81 61 60 Resp 18 18 22 20 B/P (MAP) 165/95 173/90 Pulse Ox 93 98 O2 Delivery N/A Room Air FiO2 21 06/10/24 06/10/24 14:52 16:23 Temp 97.3 Pulse 66 64 Resp 18 22 B/P (MAP) 169/90 Pulse Ox 98 LABS: Laboratory: Test 06/09/24 05:05 06/08/24 20:12 Range/Units White Blood Count 4.7 L 4.8-10.8 K/uL Red Blood Count 4.20 L 4.50-6.20 MIL/uL Hemoglobin 11.9 L 14.0-18.0 g/dL Hematocrit 37.5 L 42-54 % Mean Corpuscular Volume 89.3 79-99 fL Mean Corpuscular Hemoglobin 28.3 27.0-33.0 pg Mean Corpuscular Hemoglobin Concent 31.7 L 32.0-36.0 g/dL Red Cell Distribution Width 15.5 11.0-15.5 % Platelet Count 61 L 130-400 K/uL Mean Platelet Volume 12.3 H 7.5-10.5 fL Immature Granulocyte % (Auto) 0.4 0-1 % Neutrophils (%) (Auto) 70.9 40.0-77.0 % Lymphocytes (%) (Auto) 14.3 L 21.0-51.0 % Monocytes (%) (Auto) 12.7 3.0-13.0 % Eosinophils (%) (Auto) 1.5 0.0-8.0 % Basophils (%) (Auto) 0.2 0.0-5.0 % Neutrophils # (Auto) 3.4 1.8-7.7 K/uL Lymphocytes # (Auto) 0.7 L 1.0-4.8 K/uL Monocytes # (Auto) 0.6 0.1-1.0 K/uL Eosinophils # (Auto) 0.07 0.00-0.70 K/uL Basophils # (Auto) 0.01 0.00-0.20 K/uL Absolute Immature Granulocyte (auto 0.02 0-1 K/uL Nucleated Red Blood Cells 0.0 0.0-0.19 % Sodium Level 136 136-145 mmol/L Potassium Level 3.6 3.5-5.1 mmol/L Chloride Level 101 101-111 mmol/L Carbon Dioxide Level 28 21-32 mmol/L Blood Urea Nitrogen 11 7-18 mg/dL Creatinine 0.4 L 0.5-1.3 mg/dL Glomerular Filtration Rate Calc 110 >90 mL/min Random Glucose 104 70-105 mg/dL Total Calcium 8.4 L 8.5-10.1 mg/dL Magnesium Level 1.80 1.80-2.40 mg/dL Total Bilirubin 0.8 0.2-1.0 mg/dL Aspartate Amino Transf (AST/SGOT) 25 10-37 U/L Alanine Aminotransferase (ALT/SGPT) 8 L 12-78 U/L Alkaline Phosphatase 204 H 50-136 U/L Total Protein 6.7 6.0-8.3 g/dL Albumin 2.5 L 3.5-5.0 g/dL Vancomycin Level Trough 18.5 # 10.0-20.0 UG/ML ASSESSMENT: Bilateral lower extremities chronic ulcers. Bilateral lower extremities cellulitis. Chronic lymphedema. Onychomycosis. Thrombocytopenia. Hypertension. PLAN: Continue vancomycin. Continue Meropenem. Continue antihypertensive. Continue pain management. Continue GI prophylaxis. Continue wound care. Continue applying nystatin powder interdigitally. Patient has been approved to [facility]. This case was reviewed and discussed with my supervising physician and the above assessment and plan was formulated and agreed upon. ATTESTATION BY PHYSICIAN I have seen and examined the patient. I reviewed the documentation, medical decision making, and treatment plan as noted by the mid-level provider above. I agree with the findings and plan of care. CLEMENTINE STILES MD, MIRTA L TERMINAL OPERATOR Jun 10, 2024 17:57
[2024-06-10] MEDS ORDERED: VANCOMYCIN KIT 1 GM/250 ML IV.KIT IV SCH (21:00)
[2024-06-10] MEDS: atorVAStatin 10 MG TABLET PO SCH (21:41)
[2024-06-11] VITALS (10 sets, daily range): BP systolic 155–160; BP diastolic 91–99; PULSE 60–78; RESP 18–20; TEMP 97.5–98.2; O2SAT 94–98
[2024-06-11] MEDS ORDERED: amLODIPine 5 MG TAB PO SCH (09:00)
[2024-06-11] MEDS: VANCOMYCIN KIT 1 GM/250 ML IV.KIT IV SCH (09:34)
--- NOTE | 2024-06-11 17:13 | PN ---
INFECTIOUS DISEASE PROGRESS NOTE Date of Service: Jun 11, 2024 SUBJECTIVE: This is an 78-year-old male patient with past medical history of bilateral lower extremities chronic lymphedema with ulcers and cellulitis who was sent over as direct admission from his PCP for evaluation of bilateral lower extremity cellulitis. Patient was seen and examined at bedside in room 323. Patient is awake, alert and able to answer questions appropriately. Patient with polymicrobial infection to bilateral lower extremities ulcers. Patient is afebrile this morning, temperature is 98.1. Per report patient has been approved to [facility] and will possibly be discharged today. Patient will need ceftazidime 1 g IV every8 hours and vancomycin IV x 2 weeks. Prescription was written and in chart. PHYSICAL EXAM EYES: Anicteric. Pupils equal and reactive. HENT: No oral thrush seen, moist Oral mucosa NECK: Supple, no JVD or thyromegaly. LUNGS: Good air entry. No rales, no rhonchi. CARDIOVASCULAR: S1, S2 regular. No murmur heard. ABDOMEN: Soft, non tender, bowel sounds present, no organomegaly CENTRAL NERVOUS SYSTEM: Awake, alert, oriented x 3. No focal deficits. SKIN: No rashes, no swelling. LYMPHATICS: No peripheral lymphadenopathy MUSCULOSKELETAL: No joint swelling, erythema or tenderness. EXTREMITIES: No cyanosis or clubbing. Bilateral lower extremity lymphedema with ulcers. Fungal infection to both feet. BACK: No deformity, no pressure ulcer. GENITOURINARY: No dysuria or hematuria Vital Sign (Last 12 Hours) 06/11/24 06/11/24 06/11/24 06/11/24 07:17 07:17 08:00 12:00 Temp 98.1 98.1 Pulse 72 72 78 78 Resp 18 18 20 18 B/P (MAP) 157/93 155/95 Pulse Ox 95 96 O2 Delivery N/A Room Air Room Air Room Air FiO2 21 21 21 06/11/24 16:00 Temp 98.2 Pulse 60 Resp 18 B/P (MAP) 159/91 Pulse Ox 95 O2 Delivery Room Air FiO2 21 LABS: Laboratory: Test 06/11/24 08:49 Range/Units Vancomycin Level Trough 17.2 # 10.0-20.0 UG/ML ASSESSMENT: Bilateral lower extremities chronic ulcers with polymicrobial infection. Bilateral lower extremities cellulitis. Chronic lymphedema. Onychomycosis. Thrombocytopenia. PLAN: Continue vancomycin. Continue Meropenem. Continue pain management. Continue GI prophylaxis. Continue wound care. Continue applying nystatin powder interdigitally. Patient has been approved to [facility]. We will monitor electrolytes. This case was reviewed and discussed with my supervising physician and the above assessment and plan was formulated and agreed upon. ATTESTATION BY PHYSICIAN I have seen and examined the patient. I reviewed the documentation, medical decision making, and treatment plan as noted by the mid-level provider above. I agree with the findings and plan of care. CLEMENTINE STILES MD, MIRTA L [facility] Jun 11, 2024 17:13
--- NOTE | 2024-06-11 18:00 | NUR ---
Dressing change to bilateral lower extremities no change from prior day areas of scabbing throughout both legs and feet and in between toes, dry flaking skin and as previously reported toes to rt foot with eschar and dark and black in color. patient denies pain as dressing change performed dakins solution wet to dry to areas affected.redressed patient federico well.
--- NOTE | 2024-06-11 19:31 | NUR ---
GAVE REPORT TO RADHA HERNANDEZ FROM [facility] OF [facility]. VERBALIZED UNDERSTANDING. WILL CALL ALICIA DIRECTOR FROM [facility] FOR POSSIBLE EMS ARRANGEMENT
--- NOTE | 2024-06-11 19:37 | NUR ---
CALLED ALICIA DIRECTOR FROM [facility] REGARDING PATIENT BEING TRANSFER BUT NO VAN AVAILABLE AT THIS TIME. ALICIA STATED TO NOTIFY SPEECH LANGUAGE PATHOLOGY ASSISTANT TO SETUP EMS TO TRANSFER PATIENT TO FACILTY.
--- NOTE | 2024-06-11 20:06 | NUR ---
SETUP EMS [facility] FOR PATIENT TRANSFER TO [facility]. EMS CALLED. VERBALIZED UNDERSTANDING
--- NOTE | 2024-06-11 22:38 | PN ---
PROGRESS NOTE PROGRESS NOTE DATE OF PROGRESS NOTE: 06/11/24 SUBJECTIVE: No new complaints VITAL SIGNS Vital Signs Date Time Temp Pulse Resp B/P (MAP) Pulse Ox O2 Delivery O2 Flow Rate FiO2 06/11/24 20:23 98 Room Air* 0 21 06/11/24 20:00 97.7 68 20 159/97 PHYSICAL EXAM: OBJECTIVE: GENERAL: Awake, alert, oriented in person, time and place, not in distress. VITAL SIGNS: In the chart. HEENT: Normocephalic, atraumatic. LUNGS: Clear to auscultation. HEART: S1, S2 are distant. ABDOMEN: Soft and nontender. EXTREMITIES: Peripheral edema of lower extremities from the proximal third to both legs, down to feet. LABORATORY: Laboratory Result(s) Test 06/11/24 08:49 Vancomycin Level Trough 17.2 UG/ML (10.0-20.0) INPATIENT MEDS: Current Medications Medications Dose Ordered Sig/Neftaly Start Time Stop Time Status Last Admin Famotidine 20 mg BID 06/05/24 21:00 07/05/24 20:59 06/11/24 20:40 Diphenhydramine HCl 25 mg Q4HPRN PRN 06/05/24 21:00 07/05/24 20:59 Acetaminophen 650 mg Q6H PRN 06/05/24 21:00 07/05/24 20:59 06/10/24 16:53 Zolpidem Tartrate 5 mg HS PRN 06/05/24 21:00 07/05/24 20:59 Lactulose 20 gm BID PRN 06/05/24 21:00 07/05/24 20:59 Albuterol 1 UDVIAL Q8H 06/05/24 21:00 07/05/24 20:59 06/11/24 19:23 Albuterol Sulfate 2.5MG Q2H PRN 06/05/24 21:00 07/05/24 20:59 Vancomycin HCl 1 each AD 06/05/24 21:30 06/19/24 21:29 Potassium Chloride 100 ml @ 100 mls/hr AD PRN 06/06/24 07:30 07/06/24 07:29 Potassium Chloride 20 meq AD PRN 06/06/24 07:30 07/06/24 07:29 06/06/24 20:30 Potassium Chloride 20 meq AD PRN 06/06/24 07:30 07/06/24 07:29 06/09/24 05:34 Cefepime HCl 1 gm Q8H 06/06/24 14:30 06/16/24 14:29 06/11/24 20:40 Sodium Hypochlorite 1 APPL TP BID BID 06/06/24 21:00 07/06/24 20:59 06/11/24 20:40 Fluconazole 200 mg DAILY 06/07/24 09:00 07/07/24 08:59 06/11/24 08:00 Metoprolol Succinate 25 mg DAILY 06/08/24 09:00 07/08/24 08:59 06/11/24 08:01 Rivaroxaban 20 mg DAILY 06/08/24 09:00 07/08/24 08:59 06/11/24 08:00 Citalopram Hydrobromide 20 mg DAILY 06/08/24 09:00 07/08/24 08:59 06/11/24 08:00 Atorvastatin Calcium 10 mg HS 06/10/24 21:00 07/08/24 08:59 06/11/24 20:40 Clonidine HCl 0.1 mg Q4H PRN 06/10/24 13:30 07/10/24 13:29 Amlodipine Besylate 5 mg DAILY 06/10/24 16:00 07/10/24 15:59 06/11/24 14:09 Vancomycin HCl 1 gm Q12H 06/11/24 09:00 06/21/24 08:59 06/11/24 20:40 PLAN: . ASSESSMENT AND PLAN: * Bilateral lower extremity cellulitis with associated bilateral non-pressure ulcer. Positive culture for Acinetobacter SP, pseudomonas aeruginosa, E. coli, morganella. Continue with meropenem and vancomycin as per ID. Plan to discharge to SNF as soon as arrangements are completed. * Hypertension. Continue current medications. * Dyslipidemia. Continue current med * Muscular dystrophy. Continue current supportive care. Plan to discharge when arrangements are completed. JOBY BELL MD Jun 11, 2024 22:37
[2024-06-12] VITALS: BP 156/98; PULSE 78; RESP 20; TEMP 98.3
--- NOTE | 2024-06-12 00:47 | NUR ---
ASSISTED EMS PARAMEDICS TO TRANSFER PATIENT TO [facility] WITH NO COMPLICATIONS. ALL DISCHARGE PAPER WORK GIVEN TO EMS PARAMEDICS. RIGHT PICC LINE INTACT. ALL PATIENT'S PERSONAL BELONGINGS GIVEN TO EMS. 0053: CALLED AND NOTIFIED PATIENT'S ANEUDY WALL AT #[phone] OF PATIENT BEING TRANSFER TO [facility] AT THIS MOMENT. VERBALIZED UNDERSTANDING
== END 2024-06-12 00:45 | DRG 603 ==
LOC: EDH 19:19 → EDHIP 19:20 → DIRECT 19:43 → 3DH 06-06 00:36
PROVIDERS: ADMIT Internal Medicine; ATTEND Internal Medicine
DX: L03.116 Cellulitis of left lower limb (principal); L97.918 Non-pressure chronic ulcer of unspecified part of right lower leg with other specified severity; L97.928 Non-pressure chronic ulcer of unspecified part of left lower leg with other specified severity; L03.115 Cellulitis of right lower limb; B96.83 Acinetobacter baumannii as the cause of diseases classified elsewhere; B96.5 Pseudomonas (aeruginosa) (mallei) (pseudomallei) as the cause of diseases classified elsewhere; B96.20 Unspecified Escherichia coli [E. coli] as the cause of diseases classified elsewhere; I10 Essential (primary) hypertension; G71.00 Muscular dystrophy, unspecified; E78.5 Hyperlipidemia, unspecified; I89.0 Lymphedema, not elsewhere classified; D69.6 Thrombocytopenia, unspecified; E66.9 Obesity, unspecified; D72.819 Decreased white blood cell count, unspecified; B35.1 Tinea unguium; F32.A Depression, unspecified; Z99.3 Dependence on wheelchair
CPT/HCPCS: 36415; 71045; 80048; 80053; 80076; 80202; 83735; 85025; 85610; 85730; 87070; 87076; 87086; 87186; 94640; 94664; G0378; J0692; J2185; J3370; 3370; A6260

== ENCOUNTER 2024-09-23 13:27 | Observation (INO) | payer OTHER ==
[~2024-09-23] VITALS: Ht 185.4 cm; Wt 90.7 kg
[~2024-09-23 13:27] MED LIST changes: -ESCI-8 PO; +METO-408 PO; +RIVA20TA PO; -TELM1TAB32 PO; +TELM1TAB88 PO
[2024-09-23 14:17] LABS: HEMATOCRIT 41.6 % (42-54); MEAN CORPUSCULAR HEMOGLOBIN 29.1 pg (27.0-33.0); MEAN CORPUSCULAR HGB CONC 31.3 g/dL (32.0-36.0); MEAN CORPUSCULAR VOLUME 93.1 fL (79-99); PLATELET COUNT (AUTO) 191 K/uL (130-400); RED BLOOD CELL COUNT(AUTO) 4.47 MIL/uL (4.50-6.20); RED CELL DISTRIBUTION WIDTH 15.7 % (11.0-15.5); WHITE BLOOD COUNT (AUTO) 6.8 K/uL (4.8-10.8)
[2024-09-23] MEDS ORDERED: RIVA20TA PO (14:27)
[2024-09-23 14:30] LABS: BASOPHILS # (AUTO) 0.06 K/uL (0.00-0.20); BASOPHILS % (AUTO) 0.9 % (0.0-5.0); EOSINOPHILS # (AUTO) 0.08 K/uL (0.00-0.70); EOSINOPHILS % (AUTO) 1.1 % (0.0-8.0); IMMATURE GRANULOCYTE ABSOLUTE 0.04 K/uL (0-1); LYMPHOCYTES # (AUTO) 0.9 K/uL (1.0-4.8); LYMPHOCYTES % (AUTO) 13.2 % (21.0-51.0); MONOCYTES # (AUTO) 0.7 K/uL (0.1-1.0); MONOCYTES % (AUTO) 9.6 % (3.0-13.0); NEUTROPHILS # (AUTO) 5.2 K/uL (1.8-7.7); NEUTROPHILS % (AUTO) 74.6 % (40.0-77.0)
[2024-09-23 14:41] LABS: ALBUMIN 2.8 g/dL (3.5-5.0); BILIRUBIN,DIRECT 0.3 mg/dL (0.0-0.3); BILIRUBIN,TOTAL 0.7 mg/dL (0.2-1.0); CREATININE 0.5 mg/dL (0.5-1.3); POTASSIUM 3.7 mmol/L (3.5-5.1); THYROID STIMULATING HORMONE 1.71 uIU/mL (0.36-3.74); TOTAL PROTEIN, SERUM 7.7 g/dL (6.0-8.3)
[2024-09-23] MEDS ORDERED: PoTASSium chl 10% ELIXIR 20MEQ 20 MEQ/15 ML UDCUP PO PRN (15:00)
[2024-09-23] MEDS ORDERED: guaiFENesin-DM 200/20MG 10ML PO PRN (15:00)
[2024-09-23] MEDS ORDERED: DiphenhydrAMINE HCL 50 MG/ML VIAL IM PRN (15:00)
[2024-09-23] MEDS ORDERED: cloNIDine HCL 0.1 MG TABLET PO PRN (15:00)
[2024-09-23] MEDS ORDERED: NITROGLYCERIN 0.4 MG SL TAB SL PRN (15:00)
[2024-09-23] MEDS ORDERED: PoTASSium chloRIDE 20MEQ ER 20 MEQ ERTAB PO PRN (15:00)
[2024-09-23] MEDS ORDERED: PoTASSium chloRIDE 20MEQ/100ML 100 ML IV PRN ×2 (15:00)
[2024-09-23] MEDS ORDERED: ZOLPidem TARTrate 5 MG TAB PO PRN (15:00)
[2024-09-23] MEDS: cefTRIAXone 1G VIAL IVPB SCH (15:07)
[2024-09-23] MEDS: LACTULOSE 20 GM/30 ML UDCUP PO ONE (15:07)
--- NOTE | 2024-09-23 18:30 | NUR ---
Called Mrs. Camp for report. Mrs. Camp stated she will call me back.
--- NOTE | 2024-09-23 18:44 | NUR ---
Vashti Zoë called, I gave her report. Notify Mrs. Camp of pending consult with wound care. Vashti Zoë verbalized understanding.
--- NOTE | 2024-09-23 19:05 | NUR ---
PATIENT SETTLED IN ROOM 330 AAOX3 NO C/O PAIN OR DISCOMFORT AT THIS TIME SPOUSE AT BEDSIDE. BED LOCKED AND IN LOW POSITION, CALL LIGHT IS WITHIN REACH.
[2024-09-23 20:00] VITALS: BP 127/61; PULSE 78; RESP 18; TEMP 98
[2024-09-23] MEDS: FAMOTIDINE 20MG TAB PO SCH (20:32)
[2024-09-23 21:00] VITALS: O2SAT 96
[2024-09-23] MEDS: DiphenhydrAMINE HCL 25 MG CAPSULE PO PRN (22:40)
--- NOTE | 2024-09-23 22:45 | NUR ---
BLE WOUNDS PATIENT VOICES WOULD LIKE TO WAIT UNTIL TOMORROW TO HAVE JERAMIE BANDAGES REMOVED FROM BILATERAL LOWER EXTREMITIES WILL WAIT FOR WOUND CARE TO TREAT.
[2024-09-24] VITALS (8 sets, daily range): BP systolic 114–141; BP diastolic 59–77; PULSE 67–79; RESP 18–19; TEMP 97.9–98.4; O2SAT 93–97
[2024-09-24 04:23] LABS: BASOPHILS # (AUTO) 0.06 K/uL (0.00-0.20); BASOPHILS % (AUTO) 0.9 % (0.0-5.0); EOSINOPHILS # (AUTO) 0.14 K/uL (0.00-0.70); EOSINOPHILS % (AUTO) 2.1 % (0.0-8.0); HEMATOCRIT 37.9 % (42-54); IMMATURE GRANULOCYTE ABSOLUTE 0.02 K/uL (0-1); LYMPHOCYTES # (AUTO) 1.2 K/uL (1.0-4.8); LYMPHOCYTES % (AUTO) 17.9 % (21.0-51.0); MEAN CORPUSCULAR HEMOGLOBIN 29.5 pg (27.0-33.0); MEAN CORPUSCULAR HGB CONC 31.7 g/dL (32.0-36.0); MEAN CORPUSCULAR VOLUME 93.1 fL (79-99); MONOCYTES # (AUTO) 0.7 K/uL (0.1-1.0); MONOCYTES % (AUTO) 10.4 % (3.0-13.0); NEUTROPHILS # (AUTO) 4.6 K/uL (1.8-7.7); NEUTROPHILS % (AUTO) 68.4 % (40.0-77.0); PLATELET COUNT (AUTO) 156 K/uL (130-400); RED BLOOD CELL COUNT(AUTO) 4.07 MIL/uL (4.50-6.20); RED CELL DISTRIBUTION WIDTH 15.7 % (11.0-15.5); WHITE BLOOD COUNT (AUTO) 6.7 K/uL (4.8-10.8)
[2024-09-24 04:41] LABS: ALBUMIN 2.5 g/dL (3.5-5.0); BILIRUBIN,DIRECT 0.2 mg/dL (0.0-0.3); BILIRUBIN,TOTAL 0.6 mg/dL (0.2-1.0); CREATININE 0.4 mg/dL (0.5-1.3); POTASSIUM 4.2 mmol/L (3.5-5.1); TOTAL PROTEIN, SERUM 6.8 g/dL (6.0-8.3)
[2024-09-24] MEDS: ondanSETRON 4MG INJ IVP PRN (05:05)
--- NOTE | 2024-09-24 06:28 | HP ---
HISTORY OF PRESENT ILLNESS: The patient is a direct admission from my office. The patient came complaining of bilateral lower extremities recurrent edema, erythema and sweeping profusely. He has been followed by Dr. Barrios, who recommended admission to continue treatment. The patient denies any fever, chills, seizures, loss of consciousness. No chest pain or palpitations. No nausea, vomiting or diarrhea. No dysuria, urgency or frequency. No rashes, petechiae or ecchymoses. No hallucinations or delusions. No suicidal ideation. The patient complains of bilateral lower extremities pain. The patient ambulates with a motorized scooter. PAST MEDICAL HISTORY: Muscular dystrophy, gait ataxia, lung collapse, status post bilateral lobectomy, hypertension, dyslipidemia, peripheral vascular disease, bilateral lower extremities lymphedema, quadriplegia, bilateral lower extremities non-pressure chronic ulcers, chronic anticoagulation, DVT. MEDICATIONS: Include metoprolol, Xarelto, atorvastatin, gabapentin, venlafaxine. PHYSICAL EXAMINATION: GENERAL: He is currently awake, alert, oriented in person, time and place, not in distress. VITAL SIGNS: Blood pressure 107/56, pulse 90, respiratory rate 16. HEENT: Normocephalic, atraumatic. LUNGS: Decreased breath sounds bilaterally. HEART: S1, S2 are distant. ABDOMEN: Soft and nontender. EXTREMITIES: No clubbing or cyanosis. The patient with bilateral lower extremities edema with profuse amount of fluid coming from skin. NEUROLOGIC: Cranial nerves 2 through 12 are grossly preserved. The patient with quadriplegia. Able to move better her upper extremities and lower extremities, but unable to ambulate. ASSESSMENT AND PLAN: * Bilateral lower extremities edema/cellulitis. The patient will be admitted for treatment. Continue with his home medications. We will start him on Rocephin 1 g IV daily. Have a consultation with Dr. Barrios. * Hypertension. Continue metoprolol. * Muscular dystrophy. Continue supportive care. * Chronic anticoagulation. Continue with Xarelto. * Quadriplegia. Continue with current treatment, supportive care. * Follow up in the a.m. with results of tests. DOS: 09/23/2024 TID: [id number] RECEIPT: [id number] [facility]
--- NOTE | 2024-09-24 09:47 | NUR ---
DCP: HOME vs SNF:[facility] Pt currently lives with Leticia Duarte [phone]. Pt states that he uses a scooter to ambulate at home. Pt states that he requires assistance with ADLs and tends to help him complete tasks. Pt states that he does have home health (could not recall the name) that goes to his home 3x a week for wound care. PCP is Dr. Stefano Arora and uses [facility] for any RX needs. At [place] pt states that he is willing to go to [facility] if he requires rehab. Addendum: 09/24/24 at 0952 by CAT LAMAR Amended: Links added.
--- NOTE | 2024-09-24 20:09 | PN ---
SUBJECTIVE: The patient was admitted for assessment and treatment of lower extremity cellulitis with lymphedema. The patient is pending evaluation by Dr. Barrios in Wound Care. OBJECTIVE: GENERAL: He is currently comfortable in bed, not in distress. VITAL SIGNS: In the chart. HEENT: Normocephalic, atraumatic. LUNGS: Clear to auscultation. HEART: S1, S2 are distant. ABDOMEN: Soft and nontender. EXTREMITIES: Bilateral 2+ pitting edema of proximal leg to feet, covered with surgical gauzes ____ gauzes. LABORATORY DATA: WBC count 6.7, hemoglobin 12, platelets 156. Sodium 137, potassium 4.2, BUN 15, creatinine 0.4, AST 52, ALT 16, albumin 2.5. ASSESSMENT AND PLAN: * Bilateral lower extremity lymphedema. Continue with current treatment. * Cellulitis, lower extremities. Continue with Rocephin. Pending input from Dr. Barrios. * Muscular dystrophy. Continue supportive care. * Venous thromboembolism, chronic. Continue with anticoagulation with Xarelto. * Hypertension, controlled. * Quadriplegia. Continue current treatment. * Restricted lung disease, status post bilateral lobectomy. * Follow up with results of tests. DOS: 09/24/2024 TID: [id number] RECEIPT: [id number] [facility]
[2024-09-25] VITALS (8 sets, daily range): BP systolic 114–158; BP diastolic 68–89; PULSE 55–78; RESP 18; TEMP 97.8–98.1; O2SAT 98
[2024-09-25] MEDS: RIVAROXABAN 20 MG TABLET PO SCH (08:50)
[2024-09-25] MEDS: metOPROLol sucCINATE 25 MG TAB.SR.24H PO SCH (08:50)
--- NOTE | 2024-09-25 15:10 | NUR ---
[facility] Consult: Patient assessed by wound healing team. See wound assessment. Assessment and recommendations provided to primary nurse. Education provided. Addendum: 09/27/24 at 1144 by JAME BOATENG RN RN/ Amended: Links added.
--- NOTE | 2024-09-25 17:18 | NUR ---
TURNING The importance of turning had been reviewed with the patient this morning by Ryan TAN and Dana COLUNGA at which time the patient refused to turn. The patient was educated again by Uma LUCIA. I reeducated the patient again on the importance of turning. He then stated that no one had educated him on it prior even though all three previously mentioned individuals had stated that they had. So once I educated the patient myself he said he would be willing to try after dinner. I told the patient that after dinner at 6pm we wound turn him to the right side to which he agreed.
[2024-09-25] MEDS: atorVAStatin 10 MG TABLET PO SCH (21:49)
[2024-09-25] MEDS: AMMONIUM LACTATE 226GM LOTION TP SCH (21:50)
[2024-09-25] MEDS: HONEY 1 APPL/ML TUBE TP SCH (21:57)
--- NOTE | 2024-09-25 23:10 | PN ---
SUBJECTIVE: The patient is comfortable, afebrile. Continue with IV antibiotics. Continue with home medications. Pending input from Dr. Barrios. OBJECTIVE: GENERAL: Currently awake, alert, oriented in person, time and place, not in distress. VITAL SIGNS: In the chart. HEENT: Normocephalic, atraumatic. LUNGS: Clear to auscultation. HEART: S1, S2 are distant. ABDOMEN: Soft and nontender. EXTREMITIES: Bilateral leg edema with erythema, warmth, tenderness from distal legs, toes, feet. LABORATORY DATA: Reviewed. ASSESSMENT AND PLAN: * Bilateral lower extremity lymphedema with cellulitis. Continue current antibiotics. * Bilateral lower extremity lymphedema with superficial ulcers. Pending input from Dr. Barrios. Apparently, he recommended the patient to readmitted and transferred to SNF, pending his input. * Muscular dystrophy. Continue supportive care. * Hypertension, controlled. * VTE. Continue anticoagulation. 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 Continue current treatment. DOS: 09/25/2024 TID: [id number] RECEIPT: [id number] [facility]
[2024-09-26] MEDS: acetaMINOPHEN 325 MG TAB PO PRN (00:17)
[2024-09-26 00:30] VITALS: O2SAT 97
[2024-09-26 03:51] VITALS: BP 138/72; PULSE 63; RESP 18; TEMP 98.1
[2024-09-26 07:43] LABS: MEAN CORPUSCULAR HEMOGLOBIN 29.2 pg (27.0-33.0); PLATELET COUNT (AUTO) 130 K/uL (130-400); RED BLOOD CELL COUNT(AUTO) 4.15 MIL/uL (4.50-6.20); RED CELL DISTRIBUTION WIDTH 15.7 % (11.0-15.5); WHITE BLOOD COUNT (AUTO) 5.5 K/uL (4.8-10.8)
[2024-09-26 08:05] LABS: ALBUMIN 2.3 g/dL (3.5-5.0); BILIRUBIN,TOTAL 0.5 mg/dL (0.2-1.0); CREATININE 0.5 mg/dL (0.5-1.3); POTASSIUM 4.2 mmol/L (3.5-5.1); TOTAL PROTEIN, SERUM 6.5 g/dL (6.0-8.3)
[2024-09-26 08:11] VITALS: BP 155/95; PULSE 60; RESP 18; TEMP 97.7
[2024-09-26 08:44] VITALS: O2SAT 98
--- NOTE | 2024-09-26 11:51 | NUR ---
DISCHARGE PIV DC'D DISCHARGE INSTRUCTIONS GIVEN TO PATIENT AND WOUND CARE INSTRUCTIONS GIVEN TO PATIENT AND PATIENT AND SPOUSE AWARE OF FOLLOW UP APPOINTMENTS ALL QUESTIONS ANSWERED PRIOR TO DISCHARGE
[2024-09-26 12:01] VITALS: BP 121/70; PULSE 51; RESP 18; TEMP 97.8
== END 2024-09-26 13:13 | disposition home or self-care (01) ==
LOC: EDH 13:27 → INTOOBSV 14:50 → EDHIP 14:50 → 3AH 19:00
PROVIDERS: ADMIT Internal Medicine; ATTEND Internal Medicine
DX: L03.115 Cellulitis of right lower limb (principal); L03.116 Cellulitis of left lower limb; I89.0 Lymphedema, not elsewhere classified; G71.00 Muscular dystrophy, unspecified; I10 Essential (primary) hypertension; E78.5 Hyperlipidemia, unspecified; I73.9 Peripheral vascular disease, unspecified; G82.50 Quadriplegia, unspecified; Z79.01 Long term (current) use of anticoagulants; Z79.899 Other long term (current) drug therapy
CPT/HCPCS: 96365; 84443; 80076 ×2; 80048 ×2; 85025 ×2; 36415 ×3; 96376 ×2; 96366 ×2; 96375; 82948; 97161; 97530 ×3; 80053; 85027; Q0163; J0696 ×3; J2405 ×3; G0378 ×5; G0379; 99285